=== PATIENT | female | born 2005 | race Caucasian/White ===

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

== ENCOUNTER → 2025-04-20 | Outpatient (CLI) | payer MEDICAID, SELFPAY | END | disposition home or self-care (01) | LOC: LABSPEC 14:00 | PROVIDERS: PCP Pediatrics; Referring Provider Physician Assistant Surgical; Visit Provider Physician Assistant Surgical | DX: N89.8 Other specified noninflammatory disorders of vagina (principal); R30.0 Dysuria | CPT/HCPCS: 87086; 87591 ==